=== PATIENT | female | born 1970 | race Caucasian/White ===

== ENCOUNTER 2023-03-31 12:34 | Observation (INO) ==
[2023-03-31 12:51] VITALS: TEMP 97.9
[2023-03-31 13:24] LABS: Basophils # (auto) 0.04 K/uL (0.00-0.20); Basophils % (auto) 0.4 %; Eosinophils # (auto) 0.02 K/uL (0.00-0.50); Eosinophils % (auto) 0.2 %; Hematocrit (blood only) 42.8 % (37.0-47.0); Hemoglobin 14.4 g/dl (12.0-16.0); Immature Granulocytes # (auto) 0.06 K/uL (0.01-0.20); Immature Granulocytes % (auto) 0.5 %; Lymphocytes % (auto) 17.4 %; Mean Corpuscular Hgb Conc 33.6 g/dL (32.0-36.0); Mean Corpuscular Volume 89.2 fL (80.0-100.0); Mean Platelet Volume 10.5 fL (9.4-12.4); Monocytes # (auto) 0.99 K/uL (0.11-0.59); Monocytes % (auto) 9.1 %; Neutrophils # (auto) 7.91 K/uL (1.40-6.50); Neutrophils % (auto) 72.4 %; Platelet Count 292 K/uL (130-400); RDW Coefficient of Variation 13.3 % (11.5-14.5); RDW Standard Deviation 43.7 fL (36.4-46.3); White Blood Count 10.92 K/ul (4.8-10.8)
[2023-03-31 13:39] LABS: Albumin Globulin Ratio 1.6 (0.9-2); Albumin Level 4.6 gm/dl (3.4-5.0); Bilirubin,Total 0.5 mg/dl (0.2-1.0); Calcium 9.8 mg/dl (8.6-10.3); Creatinine Clr Calc Pharmacy 118.3 ml/min; Est GFR (African American) 123.2 ml/min; Est GFR (Non-African American) 106.3 ml/min; Globulin 2.8 gm/dl (2.5-4.0); Potassium 3.7 mmol/L (3.5-5.1); Total Protein 7.4 gm/dl (6.0-8.3)
[2023-03-31 13:45] LABS: Troponin I High Sensitivity 9.4 pg/ml (0-14)
[2023-03-31 13:50] LABS: INR 0.9 (0.9-1.1); Partial Thromboplastin Ratio 0.8; Partial Thromboplastin Time 22.9 Seconds (21.0-31.0); Prothrombin Time 10.3 Seconds (9.0-12.0)
--- NOTE | 2023-03-31 14:23 | XRay Report ---
XR chest 1V not portable HISTORY: Chest pain, nonspecific COMPARISON: None. FINDINGS: The lungs are clear. Cardiac silhouette is normal in size. No pleural effusions. No pneumot horax. Other retrocardiac density favors a small to moderate hiatus hernia. IMPRESSION: 1. No acute process within the chest. 2. Lobular retrocardiac density favors a small to moderate hiatus hernia. ACT 112: Negative or not required by law. Electronically signed by: Yousif Stevenson M.D. 03/31/2023 2:22 PM
[2023-03-31 15:23] LABS: D Dimer 330 ug/L FEU (0-500)
[2023-03-31] MEDS ORDERED: FAMOTIDINE 20MG IV PUSH 20 MG/5 ML SYR IV STA (16:06)
[2023-03-31] MEDS ORDERED: ASPIRIN 81 MG CHEW PO STA (16:06)
[2023-03-31] MEDS ORDERED: ALUMINUM/MAGNESIUM SUSP 30 ML UDC PO STA (16:06)
--- NOTE | 2023-03-31 16:12 | Emergency Department Note ---
Impression & Plan Chest pain, Rheumatoid arthritis, GERD (gastroesophageal reflux disease), HTN (hypertension) ED Provider Note Provider: Primo Patterson MD DATE OF SERVICE: 03/31/2023 CHIEF COMPLAINT: Chest discomfort HISTORY OF PRESENT ILLNESS: Patient is a 52-year-old female history of hypertension, rheumatoid arthritis, and GERD presenting here today stating onset around 1130 of some chest pressure and discomfort radiation to the right jaw shoulders and upper chest. No real shortness of breath. Got very sweaty she states. Occurred when she was playing with her cat. Sat down and this lasted about 30 minutes to 45 minutes. Significant family cardiac history. Patient denies any personal cardiac history. Denies nausea or GI upset otherwise. Maybe a touch of heartburn at this time. Came here for evaluation. Symptoms abated in the waiting room however she states on walking back to the treatment/exam room here today she experienced some increase of her chest discomfort although this is abating at this time. Pain not provokable with movement. PAST MEDICAL HISTORY: As noted above MEDICATIONS: Reviewed home medications at bedside with the patient FMH: Significant family history in father of cardiac disease SOCIAL HISTORY:non-smoker but exposure to secondhand smoke PHYSICAL EXAM: GENERAL: alert and oriented in no acute distress on stretcher Head: normocephalic and atraumatic EYES: No injection, discharge or icterus. NECK: Trachea midline. Supple. ENT: Mucous membranes pink and moist. Pharynx without erythema or exudate. LUNGS: Airway patent. No retractions. Breath sounds clear with good air entry bilaterally. HEART: Regular rate and rhythm. No chest wall tenderness ABDOMEN: Soft and non-tender, without guarding or rebound. No hepatosplenomegaly or masses BACK: No midline tenderness, no SI joint tenderness. No bilateral flank tenderness. SKIN: Acyanotic, warm, dry, without rashes EXTREMITIES: Without swelling, tenderness or deformity NEUROLOGICAL: No focal deficits. No aphasia. No facial droop or slurred speech. Normal strength and tone in the extremities. Sensation to gross touch normal. Ambulatory. EK beats per minute. Normal sinus rhythm. No PVC or PAC. No acute ST segment elevation or depression with QTc of 418. CONTINUOUS CARDIAC MONITORING: was ordered and showed a heart rate of 70s-80s bpm in normal sinus rhythm Patient's laboratory studies and imaging reviewed. Differential includes Cardiac ischemia, aortic dissection, pulmonary embolism, pneumothorax, pneumonia, pericarditis, myocarditis, esophageal rupture, GERD, cholecystitis, pancreatitis, musculoskeletal, as well as other pathologies. IMPRESSION/MEDICAL DECISION MAKING: Patient presents with some chest discomfort earlier. Quickly arrived here. Chest x-ray reassuring per radiology report questions hiatal hernia. Little bit heartburning but the sweating and radiation the jaw is very concerning in the history. Some exertional nature on the way back is also concerning. No evidence of STEMI. Initial troponin negative but within 2 hours of onset of symptoms. No other GI symptoms. D-dimer negative and doubt PE. No significant infectious symptoms recently had a lumbar spine shot on Saturday mild explain the slight leukocytosis 10.9 but I doubt this is infectious causing her chest discomfort. No anemia. No significant electrolyte abnormality or renal dysfunction. No signs of hepatic dysfunction or hepatitis on blood work. Lipase sent to exclude pancreatitis. Second troponin sent to look for any delta. No reproducible quality to her chest discomfort on exam or with breathing. Patient unfortunately with multiple risk factors with the family history, RA, hypertension, and obesity as well as the concerning exertional component to her story. Discussed with her I recommend further observation and cardiac evaluation. Heart score moderate risk at 4. The diaphoresis earlier is highly concerning as well. Patient was in agreement. Given some aspirin & GI cocktail here. Repeat troponin later returned stable which is somewhat reassuring. DIAGNOSIS: Chest pain, hypertension, obesity, family history of CAD DISPOSITION: Hospitalist will evaluate Patient was agreeable with this plan. Past Med/Surg History Social History Smoking Status: Never smoker Feels Safe at Home: Yes Allergies Allergies Allergy/AdvReac Type Severity Reaction Status Date / Time dog dander Allergy Severe Anaphylaxis Verified 03/31/23 16:36 house dust Allergy Intermediate SNEEZING, Verified 03/31/23 16:36 CONGESTION pollen extracts Allergy Intermediate SNEEZING, Verified 03/31/23 16:36 CONGESTION tree and shrub pollen Allergy Intermediate SNEEZING, Verified 03/31/23 16:36 CONGESTION albuterol [From Ventolin HFA] AdvReac Severe CONFUSION, Verified 03/31/23 16:36 SHAKEY, FELT "OUT OF IT". clarithromycin [From Biaxin] AdvReac Severe SEVERE Verified 03/31/23 16:36 DIARRHEA Home Meds Home Medications Medication Instructions Recorded Confirmed amlodipine 5 mg tablet 5 mg PO DAILY 03/31/23 03/31/23 ascorbic acid (vitamin C) 1,000 mg 1 g PO DAILY 03/31/23 03/31/23 tablet (Vitamin C) celecoxib 200 mg capsule (Celebrex) 200 mg PO DAILY 03/31/23 03/31/23 cetirizine 10 mg tablet (Zyrtec) 10 mg PO DAILY 03/31/23 03/31/23 cyanocobalamin (vitamin B-12) 1,000 mcg PO DAILY 03/31/23 03/31/23 1,000 mcg tablet (Vitamin B-12) cyanocobalamin (vitamin B-12) 1,000 mcg subcut MONTHLY 03/31/23 03/31/23 1,000 mcg/mL injection solution cyclobenzaprine 10 mg tablet 10 mg PO BID PRN MUSCLE SPASMS 03/31/23 03/31/23 diclofenac sodium 1 % topical gel 2 g topical QID PRN Pain 03/31/23 03/31/23 dicyclomine 10 mg capsule 10 mg PO BID 03/31/23 03/31/23 epinephrine 0.3 mg/0.3 mL 0.3 mg IM DIRECTED PRN Allergic 03/31/23 03/31/23 injection, auto-injector (EpiPen) Reaction hydroxychloroquine 200 mg tablet 200 mg PO BID 03/31/23 03/31/23 (Plaquenil) leflunomide 20 mg tablet (Arava) 20 mg PO QDD 03/31/23 03/31/23 losartan 100 mg tablet (Cozaar) 100 mg PO DAILY 03/31/23 03/31/23 metoprolol succinate 50 mg 50 mg PO DAILY 03/31/23 03/31/23 tablet,extended release 24 hr montelukast 10 mg tablet 10 mg PO HS 03/31/23 03/31/23 (Singulair) [id number] ac 400 1 tab PO DAILY 03/31/23 03/31/23 mcg-calcium carb 500 mg-vit K1 20 mcg tablet (Women's 50 Plus Multivitamin) omeprazole 20 mg tablet,delayed 20 mg PO DAILY 03/31/23 03/31/23 release Results & Data (ED) Vital Signs Vital Signs - 24 hr 03/31/23 12:48 03/31/23 15:57 03/31/23 15:57 Temperature 36.6 C Temperature Source Temporal Artery Scan Pulse Rate 82 87 Pulse Rate [Apical] 85 Respiratory Rate 20 23 Respiratory Effort / Characteristics Non-Labored Non-Labored Spontaneous Respiratory Depth Normal Normal Blood Pressure 117/88 Blood Pressure [Right Arm] 148/101 H Blood Pressure Mean 97 Blood Pressure Mean [Right Arm] 116 Blood Pressure Position [Right Arm] Semi-fowlers Pulse Oximetry 100 97 Oxygen Delivery Method Room Air Room Air Sepsis Recent Fever Within 48 Hours No Sepsis New/Unexplained Change in Mental Status No Sepsis Action Taken by Nursing No Action Required 03/31/23 17:29 Temperature Temperature Source Pulse Rate Pulse Rate [Apical] 81 Respiratory Rate 22 Respiratory Effort / Characteristics Respiratory Depth Blood Pressure Blood Pressure [Right Arm] 162/98 H Blood Pressure Mean Blood Pressure Mean [Right Arm] 119 Blood Pressure Position [Right Arm] Semi-fowlers Pulse Oximetry 96 Oxygen Delivery Method Room Air Sepsis Recent Fever Within 48 Hours Sepsis New/Unexplained Change in Mental Status Sepsis Action Taken by Nursing Laboratory Data 03/31/23 13:00 03/31/23 13:00 Lab Results 03/31/23 03/31/23 Range/Units 13:00 15:52 WBC 10.92 H (4.8-10.8) K/ul RBC 4.80 (4.20-5.40) M/uL Hgb 14.4 (12.0-16.0) g/dl Hct 42.8 (37.0-47.0) % MCV 89.2 (80.0-100.0) fL MCH 30.0 (25.0-34.0) pg MCHC 33.6 (32.0-36.0) g/dL RDW Std Deviation 43.7 (36.4-46.3) fL RDW Coeff of Ashley 13.3 (11.5-14.5) % Plt Count 292 (130-400) K/uL MPV 10.5 (9.4-12.4) fL Immature Gran % (Auto) 0.5 % Neut % (Auto) 72.4 % Lymph % (Auto) 17.4 % Motley % (Auto) 9.1 % Eos % (Auto) 0.2 % Baso % (Auto) 0.4 % Neut # (Auto) 7.91 H (1.40-6.50) K/uL Lymph # (Auto) 1.90 (1.20-3.40) K/uL Motley # (Auto) 0.99 H (0.11-0.59) K/uL Eos # (Auto) 0.02 (0.00-0.50) K/uL Baso # (Auto) 0.04 (0.00-0.20) K/uL Immature Gran # (Auto) 0.06 (0.01-0.20) K/uL PT 10.3 (9.0-12.0) Seconds INR 0.9 (0.9-1.1) APTT 22.9 (21.0-31.0) Seconds PTT Ratio 0.8 D-Dimer 330 (0-500) ug/L FEU Sodium 140 (136-145) mmol/L Potassium 3.7 (3.5-5.1) mmol/L Chloride 107 (98-107) mmol/L Carbon Dioxide 26 (21-32) mmol/L Anion Gap 7 (3-11) BUN 21 (6-23) mg/dl Creatinine 0.60 (0.6-1.2) mg/dl Est Cr Clr Drug Dosing 118.3 ml/min Est GFR ( Amer) 123.2 ml/min Est GFR (Non-Af Amer) 106.3 ml/min BUN/Creatinine Ratio 35.0 H (10-20) Glucose 86 (70-99(Fasting)) mg/dl Calcium 9.8 (8.6-10.3) mg/dl Total Bilirubin 0.5 (0.2-1.0) mg/dl AST 21 (13-39) U/L ALT 32 (7-52) U/L Alkaline Phosphatase 72 (34-104) U/L Troponin I High Sens 9.4 9.7 (0-14) pg/ml Total Protein 7.4 (6.0-8.3) gm/dl Albumin 4.6 (3.4-5.0) gm/dl Globulin 2.8 (2.5-4.0) gm/dl Albumin/Globulin Ratio 1.6 (0.9-2) Lipase 7 L (11-82) U/L Administered Medications Discontinued Medications Al Hydrox/Mg Hydrox/Simethicone (Aluminum/Magnesium Susp 30 Ml Udc) 30 ml PO NOW STA Stop: 03/31/23 16:07 Last Admin: 03/31/23 16:58 Dose: 30 ml Documented By: AB Aspirin (Aspirin 81 Mg Chew) 324 mg PO NOW STA Stop: 03/31/23 16:07 Last Admin: 03/31/23 16:58 Dose: 324 mg Documented By: AB Famotidine (Pepcid 20mg Iv Push) 20 mg in 5 mls @ 2.5 mls/min IV NOW STA Stop: 03/31/23 16:07 Last Admin: 03/31/23 16:58 Dose: 2.5 mls/min Documented By: AB Ioversol (Optiray 320 500ml) 113 ml IV ONCE ONE Stop: 03/31/23 17:41 Last Admin: 03/31/23 17:40 Dose: 113 ml Documented By: EDK Imaging Data Radiologist's Impression: Chest X-Ray 03/31/23 12:50 XR chest 1V not portable HISTORY: Chest pain, nonspecific COMPARISON: None. FINDINGS: The lungs are clear. Cardiac silhouette is normal in size. No pleural effusions. No pneumothorax. Other retrocardiac density favors a small to moderate hiatus hernia. IMPRESSION: 1. No acute process within the chest. 2. Lobular retrocardiac density favors a small to moderate hiatus hernia. ACT 112: Negative or not required by law. Electronically signed by: Yousif Stevenson M.D. 03/31/2023 2:22 PM Discharge Plan Visit Data Chief Complaint: Chest Pain Stated Complaint: CHEST PAIN ED Provider: Primo Patterson Discharge Problem: Chest pain, Rheumatoid arthritis, GERD (gastroesophageal reflux disease), HTN (hypertension) Patient Disposition: Being Evaluated by Hospitalist Forms Stand Alone Forms: [facility] Prescriptions Prescriptions: No Action celecoxib [Celebrex] 200 mg Capsule 200 mg PO DAILY cyclobenzaprine [Flexeril] 10 mg Tablet 10 mg PO BID PRN (Reason: MUSCLE SPASMS) ascorbic acid (vitamin C) [Vitamin C] 1,000 mg Tablet 1 g PO DAILY cetirizine [Zyrtec] 10 mg Tablet 10 mg PO DAILY metoprolol succinate 50 mg Tablet Extended Release 24 Hr 50 mg PO DAILY cyanocobalamin (vitamin B-12) [Vitamin B-12] 1,000 mcg Tablet 1,000 mcg PO DAILY amlodipine 5 mg Tablet 5 mg PO DAILY leflunomide [Arava] 20 mg Tablet 20 mg PO QDD cyanocobalamin (vitamin B-12) [Vitamin B-12] 1,000 mcg/mL Solution 1,000 mcg SUBCUT MONTHLY Rx Instructions: PER PT "HAD A COUPLE DAYS AGO" 03/31/23 montelukast [Singulair] 10 mg Tablet 10 mg PO HS hydroxychloroquine [Plaquenil] 200 mg Tablet 200 mg PO BID epinephrine [EpiPen] 0.3 mg/0.3 mL Auto-Injector 0.3 mg IM DIRECTED PRN (Reason: Allergic Reaction) losartan [Cozaar] 100 mg Tablet 100 mg PO DAILY dicyclomine [Bentyl] 10 mg Capsule 10 mg PO BID Rx Instructions: MAY TAKE A THIRD DOSE IF NEEDED. diclofenac sodium [Voltaren] 1 % Gel 2 g TOPICAL QID PRN (Reason: Pain) omeprazole 20 mg Tablet,Delayed Release (Dr/Ec) 20 mg PO DAILY Women's 50 Plus Multivitamin 400 mcg-500 mg calcium-20 mcg Tablet 1 tab PO DAILY Referrals Referrals: Poppy High DO [Primary Care Provider] - Discharge Problem: Chest pain Qualifiers: Chest pain type: unspecified Qualified Code(s): R07.9 - Chest pain, unspecified
[2023-03-31 16:41] LABS: Troponin I High Sensitivity 9.7 pg/ml (0-14)
--- NOTE | 2023-03-31 17:34 | History & Physical Report ---
Date of Service March 31, 2023 Assessment & Plan (1) Chest pain: (2) Rheumatoid arthritis: (3) GERD (gastroesophageal reflux disease): (4) HTN (hypertension): Plan Pt is a 52yoF with PMHx significant for HTN, RA, Chronic allergies, GERD with chronic ppi use and Hx of rheumatic fever as a child admitted with recurrent episodes of chest pain for ACS rule-out. Chest Pain ACS rule-out Pt with episode of atypical chest pain at 11:30AM and while ambulating in the ED Pt notes Hx of GERD, not recently controlled, Hx of rheumatic fever as a child. EKG with NSR hs-Trops not elevated at 9.4 -->9.7 Chest XRAY notes small to moderate hiatal hernia CTA chest pending, echo pending, trend trop Monitor on telemetry Cardiology consult- appreciate recs GERD Pt notes GERD not recently controlled. On chronic NSAID celebrex, chest xray noting hiatal hernia Chest CT pending for further hernia eval, consider CT abd/pelvis as well Hold home omeprazole Ordered pantoprazole 40mg BID Continue to monitor symptoms, consider GI eval HTN Continue home losartan, metoprolol, amlodipine RA On leflunomide, celebrex, plaquanil Consider holding home celebrex if symptoms persist in spite of increasing ppi dose Continue other home medications as ordered. DVT prophylaxis: Lovenox SQ Diet: HH CODE STATUS: Full code Dispo: Telemetry observation overnight History of Present Illness Chief Complaint: Chest Pain Primary Care Provider: Poppy High, Pt is a 52yoF with PMHx significant for HTN, RA, Chronic allergies, GERD with chronic ppi use and Hx of rheumatic fever as a child admitted with recurrent episodes of chest pain for ACS rule-out. States that she was playing with her cat this AM when she had the sudden onset of sharp 7/10 chest pain that lasted about 45 minutes. Presented to the ED but it subsided while in the waiting room. However, while in the ED ambulating to her room, states that it returned but this time as chest pressure in the middle of her chest. States it was associated with difficulty breathing and getting air in. Denies a Hx of DM or HLD, nonsmoker. Notes she has a Hx of HTN and an increased HR for which she is on medications. Notes a Hx of rheumatic fever as a child and notes that she had a heart valve affected. Also notes that she has a Hx of GERD for which she is on a chronic ppi and states that she is not able to come off of it. ED Course: EKG with NSR, hs trop of 9.4 with 2 hour repeat of 9.7, wbc elevated, chest xray with noted hiatal hernia. Received Maalox, pepcid and aspirin 324mg. Allergies Allergy/AdvReac Type Severity Reaction Status Date / Time dog dander Allergy Severe Anaphylaxis Verified 03/31/23 16:36 house dust Allergy Intermediate SNEEZING, Verified 03/31/23 16:36 CONGESTION pollen extracts Allergy Intermediate SNEEZING, Verified 03/31/23 16:36 CONGESTION tree and shrub pollen Allergy Intermediate SNEEZING, Verified 03/31/23 16:36 CONGESTION albuterol [From Ventolin HFA] AdvReac Severe CONFUSION, Verified 03/31/23 16:36 SHAKEY, FELT "OUT OF IT". clarithromycin [From Biaxin] AdvReac Severe SEVERE Verified 03/31/23 16:36 DIARRHEA Home Medications Medication Instructions Recorded Confirmed Type amlodipine 5 mg tablet 5 mg PO DAILY 03/31/23 03/31/23 History ascorbic acid (vitamin C) 1,000 mg 1 g PO DAILY 03/31/23 03/31/23 History tablet (Vitamin C) celecoxib 200 mg capsule (Celebrex) 200 mg PO DAILY 03/31/23 03/31/23 History cetirizine 10 mg tablet (Zyrtec) 10 mg PO DAILY 03/31/23 03/31/23 History cyanocobalamin (vitamin B-12) 1,000 mcg PO DAILY 03/31/23 03/31/23 History 1,000 mcg tablet (Vitamin B-12) cyanocobalamin (vitamin B-12) 1,000 mcg subcut MONTHLY 03/31/23 03/31/23 History 1,000 mcg/mL injection solution cyclobenzaprine 10 mg tablet 10 mg PO BID PRN MUSCLE SPASMS 03/31/23 03/31/23 History diclofenac sodium 1 % topical gel 2 g topical QID PRN Pain 03/31/23 03/31/23 History dicyclomine 10 mg capsule 10 mg PO BID 03/31/23 03/31/23 History epinephrine 0.3 mg/0.3 mL 0.3 mg IM DIRECTED PRN Allergic 03/31/23 03/31/23 History injection, auto-injector (EpiPen) Reaction hydroxychloroquine 200 mg tablet 200 mg PO BID 03/31/23 03/31/23 History (Plaquenil) leflunomide 20 mg tablet (Arava) 20 mg PO QDD 03/31/23 03/31/23 History losartan 100 mg tablet (Cozaar) 100 mg PO DAILY 03/31/23 03/31/23 History metoprolol succinate 50 mg 50 mg PO DAILY 03/31/23 03/31/23 History tablet,extended release 24 hr montelukast 10 mg tablet 10 mg PO HS 03/31/23 03/31/23 History (Singulair) qvlccwsb-zhc-lszgh ac 400 1 tab PO DAILY 03/31/23 03/31/23 History mcg-calcium carb 500 mg-vit K1 20 mcg tablet (Women's 50 Plus Multivitamin) omeprazole 20 mg tablet,delayed 20 mg PO DAILY 03/31/23 03/31/23 History release Past Med/Surg History Social History Smoking Status: Never smoker Feels Safe at Home: Yes Review of Systems Review of Systems: All systems reviewed & are unremarkable except as noted in Subjective Physical Exam Physical Exam: General: Alert, oriented. No acute distress Skin: No noted rashes or bruises Psych: Appropriate mood and affect Neuro: No gross deficits HEENT: NC/AT Chest: Nontender to palpation. CV: RRR, Normal s1, s2. No murmurs appreciated Resp: Breath sounds clear bilaterally, no increased effort of breathing. No crackles/rhonchi/rales. Abdomen: BS+. Soft, nontender, nondistended. No guarding. No organomegaly appreciated. Extremities: No edema in lower extremities bilaterally. Results & Data Results & Data Vital Signs (Past 12 Hours) Vital Signs Temp Pulse Pulse Resp BP BP Pulse Ox 03/31/23 17:29 81 22 162/98 H 96 03/31/23 15:57 85 23 148/101 H 97 03/31/23 15:57 87 03/31/23 12:48 36.6 C 82 20 117/88 100 O2 Del Method 03/31/23 17:29 Room Air 03/31/23 15:57 Room Air 03/31/23 15:57 03/31/23 12:48 Room Air Diagnostic Findings Chest X-Ray 03/31/23 12:50 XR chest 1V not portable HISTORY: Chest pain, nonspecific COMPARISON: None. FINDINGS: The lungs are clear. Cardiac silhouette is normal in size. No pleural effusions. No pneumothorax. Other retrocardiac density favors a small to moderate hiatus hernia. IMPRESSION: 1. No acute process within the chest. 2. Lobular retrocardiac density favors a small to moderate hiatus hernia. ACT 112: Negative or not required by law. Electronically signed by: Yousif Stevenson M.D. 03/31/2023 2:22 PM
[2023-03-31] MEDS ORDERED: OPTIRAY 320 500ml IV ONE (17:40)
--- NOTE | 2023-03-31 18:55 | CT Scan Report ---
CHEST CTA for PULMONARY ARTERIES CT DOSE: 741.62 mGy.cm HISTORY: PE, chest pain TECHNIQUE: Multiaxial CT images of the chest were performed following the intravenous administration of contrast to evaluate the pulmonary arteries. 3D/Maximal intensity projection images were also obta ined. Sagittal and coronal reformations were also reviewed. A dose lowering technique was utilized a dhering to the principles of ALARA. COMPARISON STUDY: None. FINDINGS: Limited views of the upper abdomen demonstrate a normal liver, spleen, and adrenal glands. The thyroid gland enhances normally. No mediastinal or hilar lymphadenopathy. The heart is top normal in size. No pleural or pericardial effusion. There is a moderate hiatus hernia containing the proxim al stomach. Normal caliber esophagus. Normal caliber thoracic aorta with no evidence for a dissection . No filling defects within the pulmonary arteries to suggest a pulmonary embolus. No acute fractures . No pneumothorax. Mild bronchial wall thickening. Mosaic attenuation seen within the lungs consisten t with air trapping. Left basilar linear densities favor subsegmental atelectasis. Otherwise, no foca l lung consolidations to suggest a pneumonia. No evidence for pulmonary edema. IMPRESSION: 1. No evidence for a pulmonary embolus. 2. Moderate hiatus hernia. 3. Mosaic attenuation within the lungs consistent with air trapping. There is associated mild bronchi al wall thickening. This favors a bronchitis. 4. No focal lung consolidations to suggest a pneumonia. ACT 112: Negative or not required by law. Electronically signed by: Yousif Stevenson M.D. 03/31/2023 6:53 PM
[2023-03-31] MEDS ORDERED: POLYETHYLENE (MIRALAX) 17 GM PACK PO PRN (20:42)
[2023-03-31] MEDS ORDERED: CYCLOBENZAPRINE HCL 10 MG TAB PO PRN (20:42)
[2023-03-31] MEDS ORDERED: ALUMINUM/MAGNESIUM SUSP 30 ML UDC PO PRN (20:42)
[2023-03-31] MEDS ORDERED: NITROGLYCERIN 2% OINTMENT 30GM TUBE EXT PRN (20:42)
[2023-03-31] MEDS ORDERED: ONDANSETRON INJ 2 MG/ML 2 ML VIAL IV PRN (20:42)
[2023-03-31] MEDS ORDERED: MONTELUKAST SODIUM 10 MG TABLET PO SCH (21:00)
[2023-03-31] MEDS: ENOXAPARIN INJ 40 MG/0.4 ML SYR SQ SCH (22:20)
[2023-03-31] MEDS: DOXYCYCLINE HYCLATE 100 MG CAP PO SCH (22:21)
[2023-03-31] MEDS: DICYCLOMINE HCL 10 MG CAP PO SCH (22:22)
[2023-03-31] MEDS: PANTOprazole 40 MG TAB PO SCH (22:22)
[2023-03-31] MEDS: HYDROXYCHLOROQUINE SULFATE 200 MG TAB PO SCH (22:23)
[2023-04-01 04:27] LABS: Basophils # (auto) 0.03 K/uL (0.00-0.20); Basophils % (auto) 0.4 %; Eosinophils # (auto) 0.06 K/uL (0.00-0.50); Eosinophils % (auto) 0.8 %; Hematocrit (blood only) 40.2 % (37.0-47.0); Hemoglobin 12.9 g/dl (12.0-16.0); Immature Granulocytes # (auto) 0.02 K/uL (0.01-0.20); Immature Granulocytes % (auto) 0.3 %; Lymphocytes # (auto) 2.05 K/uL (1.20-3.40); Lymphocytes % (auto) 26.4 %; Mean Corpuscular Hemoglobin 29.3 pg (25.0-34.0); Mean Corpuscular Hgb Conc 32.1 g/dL (32.0-36.0); Mean Corpuscular Volume 91.4 fL (80.0-100.0); Mean Platelet Volume 10.5 fL (9.4-12.4); Monocytes # (auto) 0.91 K/uL (0.11-0.59); Monocytes % (auto) 11.7 %; Neutrophils # (auto) 4.69 K/uL (1.40-6.50); Neutrophils % (auto) 60.4 %; Platelet Count 268 K/uL (130-400); RDW Coefficient of Variation 13.2 % (11.5-14.5); RDW Standard Deviation 44.4 fL (36.4-46.3); White Blood Count 7.76 K/ul (4.8-10.8)
[2023-04-01 04:43] LABS: Albumin Globulin Ratio 1.7 (0.9-2); Albumin Level 3.9 gm/dl (3.4-5.0); BUN Creatinine Ratio 28.2 (10-20); Bilirubin,Total 0.4 mg/dl (0.2-1.0); Calcium 8.7 mg/dl (8.6-10.3); Chol HDL Ratio 2.3 (0-5); Est GFR (African American) 115.1 ml/min; Est GFR (Non-African American) 99.3 ml/min; Globulin 2.3 gm/dl (2.5-4.0); Magnesium 2.2 mg/dl (1.7-2.4); Potassium 3.8 mmol/L (3.5-5.1); Total Protein 6.2 gm/dl (6.0-8.3)
--- NOTE | 2023-04-01 06:22 | Electrocardiogram Report ---
Test Reason : Blood Pressure : / mmHG Vent. Rate : 077 BPM Atrial Rate : 077 BPM P-R Int : 152 ms QRS Dur : 092 ms QT Int : 370 ms P-R-T Axes : 044 000 019 degrees QTc Int : 418 ms Normal sinus rhythm Minimal voltage criteria for LVH, may be normal variant ( R in aVL ) Borderline ECG No previous ECGs available Confirmed by Osiel Batista ([id number]) on 04/01/2023 6:21:55 AM Referred By: Confirmed By:Osiel Batista
[2023-04-01] MEDS: HYDROXYCHLOROQUINE SULFATE 200 MG TAB PO SCH (08:36)
[2023-04-01] MEDS: DOXYCYCLINE HYCLATE 100 MG CAP PO SCH (08:36)
[2023-04-01] MEDS: PANTOprazole 40 MG TAB PO SCH (08:36)
[2023-04-01] MEDS: DICYCLOMINE HCL 10 MG CAP PO SCH (08:36)
[2023-04-01] MEDS: ENOXAPARIN INJ 40 MG/0.4 ML SYR SQ SCH (08:37)
[2023-04-01 08:54] LABS: Estimated Average Glucose 111 mg/dl; Hemoglobin A1C 5.5 % (4.5-5.6)
[2023-04-01] MEDS ORDERED: amLODIPine BESYLATE 5 MG TAB PO SCH (09:00)
[2023-04-01] MEDS ORDERED: CeleBREX 200 MG CAP PO SCH (09:00)
[2023-04-01] MEDS ORDERED: CETIRIZINE HCL 10 MG TABLET PO SCH (09:00)
[2023-04-01] MEDS ORDERED: METOPROLOL SUCC 50MG EXT REL TAB PO SCH (09:00)
[2023-04-01] MEDS ORDERED: LOSARTAN POTASSIUM 50 MG TAB PO SCH (09:00)
--- NOTE | 2023-04-01 10:06 | Cardiology Consultation ---
Date of Consultation April 01, 2023 Assessment & Plan (1) Chest pain at rest: (2) HTN (hypertension): (3) Hiatal hernia: (4) Bronchitis: (5) Rheumatoid arthritis: Supervising Physician Co-Signing Physician Notes Attending Staff: Pt seen and examined with AP Staff Concur with observations and plans 52 yo woman presenting with chest pressure * Longstanding RA * HTN * Obesity (BMI 43) * No DM/Hyperlipidemia * + Hiatal Hernia - on PPI - dose had been increased * On Celebrex * + GERD hx * EKG - no major ischemic * Troponin negative x 3 (9.4, 9.7, 9.5) * CXR: Clear * CT - negative for PE; hiatal hernia - possible bronchitis * Pain - central * Duration - 30 min * Radiation to back * Patient was playing with her cat at the time * Recent lumbar injection * Had not yet eaten * Spontaneously relieved * No exertional limitations/no exertional chest pain * hx of rheumatic fever - "did impact one of the heart valves" * No hx of RI * No hx of CHF * No DM * No major hyperlipidemia * Non-smoker * + Father - CAD - 14 to 15 stents- heavy smoker - first RI in 40's * +Mother - HTN- COPD * Brother - DM Events overnight: -No chest pain overnight Plans: * Manage SBP * SBP goal 120 mmHg * Continue Losartan 100 mg po per day * Continue Toprol 50 mg po per day * Increase Norvasc to 10 mg po per day * LDL 86- HDL 82 - currently not on STATIN * Considered ASA, however, patient has significant GI hx/complaints. * Trial ASA 81 mg po per day * Replete K+ * K+ goal 4.5-5 * ECHO- pending * If ECHO is WNL, given multiple risk factors would consider Outpatient Coronary CTA * Concern for Esophageal pathology/spasm as likely underlying issues * Patient has a planned evaluation with GI upcoming [place] History of Present Illness Reason for Consultation: Chest pain Requesting Physician: Dr. Vega Attending Physician: Dr. Guerra History of Present Illness Presented to [facility] with resting sharp chest discomfort/pressure radiating into the upper chest, shoulders, right jaw and diaphoresis - EKG: NSR at 77 bpm with LVH - Troponin 9.4 -> 9.7 -> 9.5 pg/mL - CXR with small to moderate hiatus hernia, no acute process - Chest CTA: No PE. Moderate hiatus hernia. Possible bronchitis. No pneumonia. - Telemetry: Sinus in the 70's - Received Maalox, Pepcid and Aspirin 324mg - Nonsmoker. No diabetes. No dyslipidemia. Past Medical and Surgical History: Rheumatic fever as a child Rheumatoid arthritis Hiatal hernia GERD Esophageal stricture History of stomach ulcers as a child. Iron deficiency anemia Hypertension Obesity Carpal tunnel syndrome Cervical degenerative disc disease Diverticulosis Dysmenorrhea, s/p partial hysterectomy, bladder sling, rectocele repair Irritable bowel syndrome Social History: Nonsmoker. No significant alcohol. Allergies Allergy/AdvReac Type Severity Reaction Status Date / Time dog dander Allergy Severe Anaphylaxis Verified 03/31/23 16:36 house dust Allergy Intermediate SNEEZING, Verified 03/31/23 16:36 CONGESTION pollen extracts Allergy Intermediate SNEEZING, Verified 03/31/23 16:36 CONGESTION tree and shrub pollen Allergy Intermediate SNEEZING, Verified 03/31/23 16:36 CONGESTION albuterol [From Ventolin HFA] AdvReac Severe CONFUSION, Verified 03/31/23 16:36 SHAKEY, FELT "OUT OF IT". clarithromycin [From Biaxin] AdvReac Severe SEVERE Verified 03/31/23 16:36 DIARRHEA Home Medications Medication Instructions Recorded Confirmed Type amlodipine 5 mg tablet 5 mg PO DAILY 03/31/23 03/31/23 History ascorbic acid (vitamin C) 1,000 mg 1 g PO DAILY 03/31/23 03/31/23 History tablet (Vitamin C) celecoxib 200 mg capsule (Celebrex) 200 mg PO DAILY 03/31/23 03/31/23 History cetirizine 10 mg tablet (Zyrtec) 10 mg PO DAILY 03/31/23 03/31/23 History cyanocobalamin (vitamin B-12) 1,000 mcg PO DAILY 03/31/23 03/31/23 History 1,000 mcg tablet (Vitamin B-12) cyanocobalamin (vitamin B-12) 1,000 mcg subcut MONTHLY 03/31/23 03/31/23 History 1,000 mcg/mL injection solution cyclobenzaprine 10 mg tablet 10 mg PO BID PRN MUSCLE SPASMS 03/31/23 03/31/23 History diclofenac sodium 1 % topical gel 2 g topical QID PRN Pain 03/31/23 03/31/23 History dicyclomine 10 mg capsule 10 mg PO BID 03/31/23 03/31/23 History epinephrine 0.3 mg/0.3 mL 0.3 mg IM DIRECTED PRN Allergic 03/31/23 03/31/23 History injection, auto-injector (EpiPen) Reaction hydroxychloroquine 200 mg tablet 200 mg PO BID 03/31/23 03/31/23 History (Plaquenil) leflunomide 20 mg tablet (Arava) 20 mg PO QDD 03/31/23 03/31/23 History losartan 100 mg tablet (Cozaar) 100 mg PO DAILY 03/31/23 03/31/23 History metoprolol succinate 50 mg 50 mg PO DAILY 03/31/23 03/31/23 History tablet,extended release 24 hr montelukast 10 mg tablet 10 mg PO HS 03/31/23 03/31/23 History (Singulair) wcuzbhli-njl-gcgyr ac 400 1 tab PO DAILY 03/31/23 03/31/23 History mcg-calcium carb 500 mg-vit K1 20 mcg tablet (Women's 50 Plus Multivitamin) omeprazole 20 mg tablet,delayed 20 mg PO DAILY 03/31/23 03/31/23 History release Patient History Social History Smoking Status: Never smoker Hx Alcohol Use: No Hx Substance Use: No Preferred Language: Armenian 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 Physical Exam Physical Exam: As per Attending Business Excellence Manager, Dr. Hannon Obese No elevation in JVP S1S2 no murmurs appreciated CTA B No musculoskeletal pain on deep palpation of chest No c/c/e; warm and perfusing Results & Data Vital Signs (Past 12 Hours) Vital Signs Pulse Pulse Resp BP BP Pulse Ox O2 Del Method 04/01/23 07:26 78 16 155/104 H 97 Room Air 04/01/23 04:30 69 22 95 04/01/23 04:20 70 23 95 04/01/23 04:10 73 24 93 04/01/23 04:03 135/88 11/13/23 04:03 70 19 94 04/01/23 04:00 75 16 95 04/01/23 04:00 70 18 135/88 95 Room Air 04/01/23 03:50 70 21 94 04/01/23 03:40 69 24 94 04/01/23 03:30 70 15 94 04/01/23 03:20 72 19 94 04/01/23 03:10 70 13 94 04/01/23 03:00 71 13 94 04/01/23 02:50 70 26 H 94 04/01/23 02:40 70 20 94 04/01/23 02:30 74 23 95 04/01/23 02:20 69 13 94 04/01/23 02:10 69 12 94 04/01/23 02:00 70 13 94 04/01/23 01:50 75 15 95 04/01/23 01:40 78 12 94 04/01/23 01:30 76 13 94 04/01/23 01:20 70 21 94 04/01/23 01:10 70 22 94 04/01/23 01:00 69 23 94 04/01/23 00:50 70 24 93 04/01/23 00:40 70 22 94 04/01/23 00:30 70 23 94 04/01/23 00:28 95 Room Air 04/01/23 00:20 70 24 94 04/01/23 00:10 71 18 94 04/01/23 00:00 70 23 93 03/31/23 23:50 72 24 93 03/31/23 23:40 70 26 H 94 03/31/23 23:38 71 03/31/23 23:30 71 23 94 03/31/23 23:20 74 15 95 03/31/23 23:10 117 H 14 95 03/31/23 23:00 80 18 94 03/31/23 22:58 94 H 17 157/114 H 94 03/31/23 22:57 157/114 H 03/31/23 22:57 84 24 94 Laboratory Results Cardiac Enzymes 03/31/23 03/31/23 03/31/23 Range/Units 13:00 15:52 21:07 AST 21 (13-39) U/L Troponin I High Sens 9.4 9.7 9.5 (0-14) pg/ml 04/01/23 Range/Units 03:58 AST 16 (13-39) U/L Troponin I High Sens (0-14) pg/ml Coagulation 03/31/23 Range/Units 13:00 PT 10.3 (9.0-12.0) Seconds APTT 22.9 (21.0-31.0) Seconds Lipids 04/01/23 Range/Units 03:58 Triglycerides 105 (0-150) mg/dl Cholesterol 189 (0-200) mg/dl HDL Cholesterol 82 mg/dl Cholesterol/HDL Ratio 2.3 (0-5) CBC 03/31/23 04/01/23 Range/Units 13:00 03:58 WBC 10.92 H 7.76 (4.8-10.8) K/ul RBC 4.80 4.40 (4.20-5.40) M/uL Hgb 14.4 12.9 (12.0-16.0) g/dl Hct 42.8 40.2 (37.0-47.0) % Plt Count 292 268 (130-400) K/uL Neut # (Auto) 7.91 H 4.69 (1.40-6.50) K/uL Lymph # (Auto) 1.90 2.05 (1.20-3.40) K/uL [place] # (Auto) 0.99 H 0.91 H (0.11-0.59) K/uL Eos # (Auto) 0.02 0.06 (0.00-0.50) K/uL Baso # (Auto) 0.04 0.03 (0.00-0.20) K/uL Comprehensive Metabolic Panel 03/31/23 04/01/23 Range/Units 13:00 03:58 Sodium 140 140 (136-145) mmol/L Potassium 3.7 3.8 (3.5-5.1) mmol/L Chloride 107 107 (98-107) mmol/L Carbon Dioxide 26 29 (21-32) mmol/L BUN 21 20 (6-23) mg/dl Creatinine 0.60 0.71 (0.6-1.2) mg/dl Glucose 86 98 (70-99(Fasting)) mg/dl Calcium 9.8 8.7 (8.6-10.3) mg/dl AST 21 16 (13-39) U/L ALT 32 27 (7-52) U/L Alkaline Phosphatase 72 61 (34-104) U/L Total Protein 7.4 6.2 (6.0-8.3) gm/dl Albumin 4.6 3.9 (3.4-5.0) gm/dl Intake and Output 03/31/23 04/01/23 04/01/23 22:59 06:59 14:59 Other: Weight 101.3 kg Weight Measurement Method Built in [facility] Patient Weight 04/02/23 06:59 Weight 101.3 kg Medications Administered Current Inpatient Medications Al Hydrox/Mg Hydrox/Simethicone (Aluminum/Magnesium Susp 30 Ml Udc) 30 ml PO Q6H PRN PRN Reason: Dyspepsia Stop: 04/30/23 20:41 Amlodipine Besylate (Amlodipine Besylate 5 Mg Tab) 5 mg PO DAILY MAHI Stop: 05/01/23 08:59 Last Admin: 04/01/23 08:36 Dose: 5 mg Celecoxib (Celebrex 200 Mg Cap) 200 mg PO DAILY MAHI Stop: 05/01/23 08:59 Last Admin: 04/01/23 08:36 Dose: 200 mg Cetirizine HCl (Cetirizine Hcl 10 Mg Tablet) 10 mg PO DAILY MAHI Stop: 05/01/23 08:59 Last Admin: 04/01/23 08:36 Dose: 10 mg Cyclobenzaprine HCl (Cyclobenzaprine Hcl 10 Mg Tab) 10 mg PO BID PRN PRN Reason: MUSCLE SPASMS Stop: 04/30/23 20:41 Dicyclomine HCl (Dicyclomine Hcl 10 Mg Cap) 10 mg PO BID MAHI Stop: 04/30/23 20:59 Last Admin: 04/01/23 08:36 Dose: 10 mg Doxycycline Hyclate (Doxycycline Hyclate 100 Mg Cap) 100 mg PO BID MAHI Stop: 04/07/23 20:59 Last Admin: 04/01/23 08:36 Dose: 100 mg Enoxaparin Sodium (Enoxaparin Inj 40 Mg/0.4 Ml Syr) 40 mg SQ Q12H MAHI Stop: 04/30/23 20:59 Last Admin: 04/01/23 08:37 Dose: 40 mg Hydroxychloroquine Sulfate (Hydroxychloroquine Sulfate 200 Mg Tab) 200 mg PO BID MAHI Stop: 04/30/23 20:59 Last Admin: 04/01/23 08:36 Dose: 200 mg Leflunomide (Leflunomide 10 Mg Tab) 20 mg PO QDD [facility] Stop: 05/01/23 16:29 Losartan Potassium (Losartan Potassium 50 Mg Tab) 100 mg PO DAILY MAHI Stop: 05/01/23 08:59 Last Admin: 04/01/23 08:36 Dose: 100 mg Metoprolol Succinate (Metoprolol Succ 50mg Ext Rel Tab) 50 mg PO DAILY MAHI Stop: 05/01/23 08:59 Last Admin: 04/01/23 08:36 Dose: 50 mg Montelukast Sodium (Montelukast Sodium 10 Mg Tablet) 10 mg PO HS [facility] Stop: 04/30/23 20:59 Last Admin: 03/31/23 22:22 Dose: 10 mg Nitroglycerin (Nitroglycerin 2% Ointment 30gm Tube) 0.5 inch EXT Q6H PRN PRN Reason: Chest Pain Stop: 04/30/23 20:41 Ondansetron HCl (Ondansetron Inj 2 Mg/Ml 2 Ml Vial) 4 mg IV Q6H PRN PRN Reason: Nausea And Vomiting Stop: 04/30/23 20:41 Pantoprazole Sodium (Pantoprazole 40 Mg Tab) 40 mg PO BID [facility] Stop: 04/30/23 20:59 Last Admin: 04/01/23 08:36 Dose: 40 mg Polyethylene Glycol (Polyethylene (Miralax) 17 Gm Pack) 17 gm PO DAILY PRN PRN Reason: Constipation Stop: 04/30/23 20:41 (2) HTN (hypertension) Hypertension type: primary hypertension Qualified Code(s): I10 - Essential (primary) hypertension
[2023-04-01 12:59] VITALS: RESP 18
[2023-04-01 14:46] VITALS: BP 168/108; PULSE 81; O2SAT 98
--- NOTE | 2023-04-01 15:23 | Discharge Summary ---
Date of Service April 01, 2023 Admission HPI Per Admitting Provider Pt is a 52yoF with PMHx significant for HTN, RA, Chronic allergies, GERD with chronic ppi use and Hx of rheumatic fever as a child admitted with recurrent episodes of chest pain for ACS rule-out. States that she was playing with her cat this AM when she had the sudden onset of sharp 7/10 chest pain that lasted about 45 minutes. Presented to the ED but it subsided while in the waiting room. However, while in the ED ambulating to her room, states that it returned but this time as chest pressure in the middle of her chest. States it was associated with difficulty breathing and getting air in. Denies a Hx of DM or HLD, nonsmoker. Notes she has a Hx of HTN and an increased HR for which she is on medications. Notes a Hx of rheumatic fever as a child and notes that she had a heart valve affected. Also notes that she has a Hx of GERD for which she is on a chronic ppi and states that she is not able to come off of it. ED Course: EKG with NSR, hs trop of 9.4 with 2 hour repeat of 9.7, wbc elevated, chest xray with noted hiatal hernia. Received Maalox, pepcid and aspirin 324mg. Admission Exam Per Admitting Provider General: Alert, oriented. No acute distress Skin: No noted rashes or bruises Psych: Appropriate mood and affect Neuro: No gross deficits HEENT: NC/AT Chest: Nontender to palpation. CV: RRR, Normal s1, s2. No murmurs appreciated Resp: Breath sounds clear bilaterally, no increased effort of breathing. No crackles/rhonchi/rales. Abdomen: BS+. Soft, nontender, nondistended. No guarding. No organomegaly appreciated. Extremities: No edema in lower extremities bilaterally. Principal Diagnosis Atypical chest pain, likely secondary to GERD Discharge Exam Constitutional: WD/WN, vitals as above, NAD, sitting up in bed, pleasant, conversing easily Respiratory: b/l still breath sounds; improved from yesterday. Cardiovascular: RRR, no murmur, no edema Vessels: no JVD or carotid bruit Chest: normal inspection of chest Abdomen: normal bowel sounds, soft, nontender, no hepatosplenomegaly Musculoskeletal: no cyanosis or clubbing, extremities motor strength 5/5 Skin: no rashes, warm and dry normal turgor Neurologic: PERRL, EOMI, accommodation nl, no face palsy, no dysarthria CN's II- XI intact bilaterally and moves all extremities Psychiatric: A+Ox3, euthymic affect Discharge Data Allergies Allergy/AdvReac Type Severity Reaction Status Date / Time dog dander Allergy Severe Anaphylaxis Verified 03/31/23 16:36 house dust Allergy Intermediate SNEEZING, Verified 03/31/23 16:36 CONGESTION pollen extracts Allergy Intermediate SNEEZING, Verified 03/31/23 16:36 CONGESTION tree and shrub pollen Allergy Intermediate SNEEZING, Verified 03/31/23 16:36 CONGESTION albuterol [From Ventolin HFA] AdvReac Severe CONFUSION, Verified 03/31/23 16:36 SHAKEY, FELT "OUT OF IT". clarithromycin [From Biaxin] AdvReac Severe SEVERE Verified 03/31/23 16:36 DIARRHEA Consultations 03/31/23 16:29 ED Decision to Admit Stat 03/31/23 20:42 Consult Cardiology Routine Ordered Studies 03/31/23 17:31 CT angio chest PE protocol Urgent Hospital Course (1) Chest pain: (2) Rheumatoid arthritis: (3) GERD (gastroesophageal reflux disease): (4) HTN (hypertension): Plan Patient is a 52yoF with PMHx significant for HTN, RA, Chronic allergies, GERD with chronic ppi use and Hx of rheumatic fever as a child admitted with recurrent episodes of chest pain for ACS rule-out. EKG on admission showed normal sinus rhythm; no ST or T wave changes. High sensitive troponin was negative. CTA chest concerning for hiatal hernia. Echocardiogram showed normal EF; no other abnormality. Cardiology consultation was done; recommended outpatient coronary CTA. Patient was provided prescription for Protonix 40 mg twice daily and placing her Omezprazole 20 mg once a day. Patient to follow-up with primary care doctor as outpatient. Please note the above document was generated using voice recognition software. It may contain grammatical, syntax or spelling errors. Any formal questions or concerns about the content, text or information contained within the body of this dictation should be directly addressed to the provider for clarification Total Time Total Time Spent Total Time Spent (In Minutes): 45 Total Time Includes: Examination of the Patient, Discharge Planning, Medication Reconciliation, Communication With Other Providers and Other Discharge Plan Discharge Items Patient Disposition: Home - Self-Care Reason For Visit: CHEST PAIN Discharge Diagnosis: Chest pain likely due to GERD Activity: Resume your previous activity Non-emergency contact: Primary Care Provider Call non-emergency contact if: you have any medication questions and your symptoms worsen Follow-up/Referrals: Poppy High DO [Primary Care Provider] - 04/05/23 9:15 am Diet: Regular Addtl Attending Provider Instructions: You were admitted to the hospital due to chest pain. Cardiac work-up including echocardiogram was done which did not show any acute finding. Echocardiogram showed normal heart function. The nascar driver suggested outpatient coronary CTA. Rotary Dryer Operator also suggested trial of aspirin 81 mg once a day. You can get started on them after your reflux symptoms are in better control. Also continue to monitor your blood pressure daily. If your blood pressure is consistently above 130/80; the dose of the amlodipine can be increased to 10 mg once a day The likely cause for the chest pain is reflux. You are prescribed Protonix 40 mg to be taken twice daily. You can also try [id number] Maalox which can help heartburn as well. Please follow-up with your primary care doctor next week. Pending Studies at Discharge: No Stand-Alone Forms: My [employer], Smoking Cessation Medications and DC Order Prescriptions: New pantoprazole 40 mg Tablet,Delayed Release (Dr/Ec) 40 mg PO BID Qty: 60 0RF Continued celecoxib [Celebrex] 200 mg Capsule 200 mg PO DAILY cyclobenzaprine 10 mg Tablet 10 mg PO BID PRN (Reason: MUSCLE SPASMS) ascorbic acid (vitamin C) [Vitamin C] 1,000 mg Tablet 1 g PO DAILY cetirizine [Zyrtec] 10 mg Tablet 10 mg PO DAILY metoprolol succinate 50 mg Tablet Extended Release 24 Hr 50 mg PO DAILY cyanocobalamin (vitamin B-12) [Vitamin B-12] 1,000 mcg Tablet 1,000 mcg PO DAILY amlodipine 5 mg Tablet 5 mg PO DAILY leflunomide [Arava] 20 mg Tablet 20 mg PO QDD cyanocobalamin (vitamin B-12) 1,000 mcg/mL Solution 1,000 mcg SUBCUT MONTHLY Rx Instructions: PER PT "HAD A COUPLE DAYS AGO" 03/31/23 montelukast [Singulair] 10 mg Tablet 10 mg PO HS hydroxychloroquine [Plaquenil] 200 mg Tablet 200 mg PO BID epinephrine [EpiPen] 0.3 mg/0.3 mL Auto-Injector 0.3 mg IM DIRECTED PRN (Reason: Allergic Reaction) losartan [Cozaar] 100 mg Tablet 100 mg PO DAILY dicyclomine 10 mg Capsule 10 mg PO BID Rx Instructions: MAY TAKE A THIRD DOSE IF NEEDED. diclofenac sodium 1 % Gel 2 g TOPICAL QID PRN (Reason: Pain) Women's 50 Plus Multivitamin 400 mcg-500 mg calcium-20 mcg Tablet 1 tab PO DAILY Discontinued omeprazole 20 mg Tablet,Delayed Release (Dr/Ec) 20 mg PO DAILY Discharge Orders: Discharge Order (Routine); Ordered 04/01/23 Ordered By: Naun Guerra Admission Data Admit Date/Time: 03/31/23 17:27 Attending Provider: Naun Guerra Admit Provider: Mini Vega Primary Care Provider: Poppy High Other Providers: Mini Vega; Matthew Herron Other Interventions: Discharge Summary Assessment (RN) Last Done: 04/01/23 14:45
[2023-04-01] MEDS ORDERED: LEFLUNOMIDE 10 MG TAB PO SCH (16:30)
== END 2023-04-01 14:45 | disposition home or self-care (01) | DRG 392 ==
LOC: ED 12:34 → INTOOBSV 17:27 → SUATTDRO 17:27 → EDINP 17:27
DX: Z82.49 Family history of ischemic heart disease and other diseases of the circulatory system; E66.9 Obesity, unspecified; R07.89 Other chest pain; I10 Essential (primary) hypertension; Z88.8 Allergy status to other drugs, medicaments and biological substances; Z68.41 Body mass index [BMI] 40.0-44.9, adult; Z88.1 Allergy status to other antibiotic agents; Z79.899 Other long term (current) drug therapy; Z91.048 Other nonmedicinal substance allergy status; Z79.51 Long term (current) use of inhaled steroids; K44.9 Diaphragmatic hernia without obstruction or gangrene; M06.9 Rheumatoid arthritis, unspecified; K21.9 Gastro-esophageal reflux disease without esophagitis